=== PATIENT | female | born 1980 | race Caucasian/White ===

== ENCOUNTER → 2020-03-16 11:26 | Outpatient (BNVA) | payer BC, MEDICAID, SELFPAY | PROVIDERS: Family Provider Family Medicine; PCP Family Medicine; Visit Provider Internal Medicine Rheumatology | DX: M35.00 Sjogren syndrome, unspecified (principal); M77.11 Lateral epicondylitis, right elbow; M77.12 Lateral epicondylitis, left elbow; M77.01 Medial epicondylitis, right elbow; M77.02 Medial epicondylitis, left elbow; M79.7 Fibromyalgia; B37.0 Candidal stomatitis; M19.90 Unspecified osteoarthritis, unspecified site | CPT/HCPCS: 99204 ==

== ENCOUNTER 2020-03-16 13:45 | Outpatient (CLI) | payer BC, MEDICAID, SELFPAY ==
--- NOTE | 2020-03-16 13:54 | XR_ITS ---
WS: [id number] XR foot LT min 3V* [id number] REASON FOR EXAM: inflammatory arthritis FINDINGS: Left foot 3 views shows normal appearance of the phalanges, metatarsals, and tarsals. No fr actures or other dyscrasias are seen. There is no unusual swelling noted. The calcaneus shows a were small retrocalcaneal exostosis otherwise normal. XR/XR foot LT min 3V* [id number] IMPRESSION: Negative left foot.
--- NOTE | 2020-03-16 13:54 | XR_ITS ---
WS: [id number] XR hand LT min 3V* [id number] REASON FOR EXAM: inflammatory arthritis FINDINGS: The phalanges and hand show mild edema. No erosive changes of the hand are seen are joints synovial swelling. No fractures are seen. XR/XR hand LT min 3V* [id number] IMPRESSION: Mild swelling of the hand.
--- NOTE | 2020-03-16 13:54 | XR_ITS ---
WS: [id number] XR hand RT min 3V* [id number] REASON FOR EXAM: inflammatory arthritis FINDINGS: The phalanges, metacarpals carpals, and carpals all appear to be normal. No erosive changes . No destructive changes are seen. XR/XR hand RT min 3V* [id number] IMPRESSION: Negative right hand.
--- NOTE | 2020-03-16 13:54 | XR_ITS ---
WS: [id number] XR foot RT min 3V* [id number] REASON FOR EXAM: inflammatory arthritis FINDINGS: The phalanges, metatarsals, tarsals all are normal. No destructive or erosive changes. No unusual soft tissue swelling. The calcaneus shows retrocalcaneal exostosis. XR/XR foot RT min 3V* [id number] IMPRESSION: Negative foot for acute findings.
--- NOTE | 2020-03-16 13:54 | XR_ITS ---
WS: [id number] XR chest 2V* [id number] REASON FOR EXAM: inflammatory arthritis FINDINGS: In the mid left chest is a calcified granuloma or hamartoma. The lung rivas are well aerated. There is no pneumonia, pleural effusion, pulmonary edema, no inters titial disease. The hilum and apices are normal. No osseous abnormalities. XR/XR chest 2V* [id number] IMPRESSION: Negative chest for acute pathology Small hamartoma midportion left chest
== END 2020-03-16 13:46 | disposition home or self-care (01) ==
LOC: WPI 13:49
PROVIDERS: Family Provider Family Medicine; PCP Family Medicine; Visit Provider Internal Medicine Rheumatology
DX: M19.90 Unspecified osteoarthritis, unspecified site (principal); M79.89 Other specified soft tissue disorders; Q85.9 Phakomatosis, unspecified
CPT/HCPCS: 71046; 73130; 73630

== ENCOUNTER → 2020-04-21 11:13 | Outpatient (BNVA) | payer BC, MEDICAID, SELFPAY | PROVIDERS: Family Provider Family Medicine; PCP Family Medicine; Visit Provider Internal Medicine Rheumatology | DX: M25.50 Pain in unspecified joint (principal); M79.7 Fibromyalgia; B37.0 Candidal stomatitis; R91.1 Solitary pulmonary nodule; M77.11 Lateral epicondylitis, right elbow; M77.12 Lateral epicondylitis, left elbow; M77.01 Medial epicondylitis, right elbow; M77.02 Medial epicondylitis, left elbow; R68.2 Dry mouth, unspecified | CPT/HCPCS: 99214 ==

== ENCOUNTER 2020-04-21 14:15 | Outpatient (CLI) | payer BC, MEDICAID, SELFPAY ==
--- NOTE | 2020-04-21 15:30 | CT_ITS ---
WS: [id number] CT CHEST TECHNIQUE: Noncontrast CT of the chest with coronal and sagittal reformatted images. CLINICAL INFORMATION: Lung nodule COMPARISON: None. DLP: 996.[address] scans at [facility] use at least one of these dose optimization techniques: automat ed exposure control; mA and/or kV adjustment per patient size (includes targeted exams where dose is matched to clinical indication); or iterative reconstruction. FINDINGS: Incidental calcified granuloma or hamartoma in the mid left lung is unchanged since the radiograph. N o other suspicious pulmonary parenchymal opacities. No acute pulmonary infiltrates. Normal thyroid gl and. No mediastinal or hilar lymphadenopathy. Prior cholecystectomy. Adrenal glands are normal. No ax illary lymphadenopathy. Normal thoracic spine. CT/CT chest wo con [id number] IMPRESSION: 1. Incidental calcified granuloma or hamartoma in the mid left lung is unchang ed. 2. No suspicious pulmonary parenchymal opacities
== END 2020-04-21 14:16 | disposition home or self-care (01) ==
LOC: RADWPI 14:17
PROVIDERS: Family Provider Family Medicine; PCP Family Medicine; Visit Provider Internal Medicine Critical Care Medicine
DX: R91.1 Solitary pulmonary nodule (principal)
CPT/HCPCS: 71250

== ENCOUNTER 2020-05-27 15:05 | Outpatient (CLI) | payer BC, MEDICAID, SELFPAY ==
[2020-05-27 16:03] LABS: Immunoglobulin IGA 185 mg/dL (70-400); Immunoglobulin IGG 748 mg/dL (700-1600); Immunoglobulin IGM 145 mg/dL (40-230)
[2020-05-27 17:21] LABS: HIV 1 & 2 Antibody Non-Reactive (Non-Reactiv); HIV 1 & 2 Antigen Non-Reactive (Non-Reactiv)
== END 2020-05-27 15:06 | disposition home or self-care (01) ==
LOC: LAB 15:07
PROVIDERS: PCP Family Medicine; Visit Provider Internal Medicine Critical Care Medicine
DX: B37.81 Candidal esophagitis (principal)
CPT/HCPCS: 82784; 87806

== ENCOUNTER 2022-04-26 10:39 | Outpatient (CLI) | payer BC, SELFPAY ==
--- NOTE | 2022-04-26 11:00 | MR_ITS ---
WS: [id number] MRI LUMBAR SPINE NONCONTRAST TECHNIQUE: Sagittal T1, T2 and STIR imaging. Axial T1 and T2 imaging. CLINICAL INFORMATION: R29.898 - Other symptoms and signs involving the musculos... COMPARISON: MRI 8 015 FINDINGS: Mild lumbar curve. No acute compression. No high-grade central canal stenosis. Disc space narrowing w orse L5-S1 progressed slightly compared 2015. Endplate degenerative changes L5-S1 L1-L2: No significant disc bulging. Mild facet arthropathy. Spinal canal and foramen are patent. L2-L3: No significant disc bulging. Mild LEFT and no significant RIGHT foraminal narrowing. Mild face t arthropathy. L3-L4: No significant disc bulging. Mild facet arthropathy. Spinal canal and foramen are patent. L4-L5: Mild annular bulging with slight effacement of the ventral thecal sac. Moderate facet arthropa thy. Mild RIGHT and no significant LEFT foraminal narrowing. This is similar compared to 2015. LEFT f oramen is patent. Moderate facet arthropathy. L5-S1: Disc desiccation with disc osteophyte complex eccentric to the RIGHT. Slight impingement trave rsing RIGHT S1 nerve root. This is similar compared to 2015. Osteophytic ridging encroaches on the fa r exiting RIGHT L5 nerve root laterally. This is unchanged since 2015. Visualized pelvic bony structures: Normal. Paravertebral soft tissues: Normal. MR/MR lumbar spine wo con* [id number] IMPRESSION: 1. Mild lumbar curve. No acute compression. No high-grade central canal stenos is. 2. Disc osteophytic ridging L4-L5 eccentric to the RIGHT with mild RIGHT joseluis inal narrowing and slight contact exiting RIGHT L4 nerve root similar to 2015. Slight narrowing of the RIGHT subarticular recess at this level. 3. Disc osteophyte complex L5-S1 impinges the traversing RIGHT S1 nerve root i n the subarticular recess. Recommend correlation for RIGHT S1 nerve root sympto ms. This was present in 2015. 4. Eccentric osteophytic ridging L5-S1 encroaches on the far exiting RIGHT L5 nerve root laterally. 5. Moderate facet arthropathy L4-L5.
== END 2022-04-26 10:40 | disposition home or self-care (01) ==
PROVIDERS: Visit Provider Internal Medicine Rheumatology
DX: R29.898 Other symptoms and signs involving the musculoskeletal system (principal); R32 Unspecified urinary incontinence; M25.78 Osteophyte, vertebrae; M47.816 Spondylosis without myelopathy or radiculopathy, lumbar region
CPT/HCPCS: 72148

== ENCOUNTER → 2022-08-10 11:11 | Outpatient (BNVA) | payer BC, SELFPAY | PROVIDERS: Visit Provider Internal Medicine Rheumatology | DX: Z79.899 Other long term (current) drug therapy (principal); M06.041 Rheumatoid arthritis without rheumatoid factor, right hand; M06.042 Rheumatoid arthritis without rheumatoid factor, left hand; M79.7 Fibromyalgia; Z71.85 Encounter for immunization safety counseling | CPT/HCPCS: 36415; 73130; 73562; 73630; 80076; 82565; 85025; 85651; 86140 ==